=== PATIENT | female | born 1945 | race Caucasian/White ===

== ENCOUNTER 2020-01-04 16:26 | Emergency (ER) | payer MEDICARE, MEDICAID ==
[~2020-01-04] VITALS: Ht 167.6 cm; Wt 80.9 kg
[~2020-01-04 16:26] MED LIST: ATOM80CA PO; LEVO150T8 PO; QUET-1 PO; SERT50TA PO; VALA500T PO; VALS160T2 PO
[2020-01-04 16:27] VITALS: BP 167/112
== END 2020-01-04 17:56 | disposition home or self-care (01) ==
LOC: ER 16:26
DX: J06.9 Acute upper respiratory infection, unspecified (principal); I10 Essential (primary) hypertension; E11.9 Type 2 diabetes mellitus without complications; F31.9 Bipolar disorder, unspecified; F15.90 Other stimulant use, unspecified, uncomplicated; Z60.2 Problems related to living alone; Z79.899 Other long term (current) drug therapy
CPT/HCPCS: 71045; 99283

== ENCOUNTER 2020-04-03 17:24 | Emergency (ER) | payer MEDICARE, MEDICAID ==
[~2020-04-03] VITALS: Ht 167.6 cm; Wt 79.0 kg
[2020-04-03 17:46] VITALS: BP 176/99
== END 2020-04-03 18:30 | disposition home or self-care (01) ==
LOC: ER 17:24
DX: F22 Delusional disorders (principal); I10 Essential (primary) hypertension; E11.9 Type 2 diabetes mellitus without complications; F31.9 Bipolar disorder, unspecified; F15.90 Other stimulant use, unspecified, uncomplicated; Z60.2 Problems related to living alone; Z79.899 Other long term (current) drug therapy; Z00.00 Encounter for general adult medical examination without abnormal findings
CPT/HCPCS: 99281

== ENCOUNTER 2024-10-21 22:31 | Emergency (ER) | payer MEDICARE, MEDICAID ==
[~2024-10-21] VITALS: Ht 167.6 cm; Wt 80.9 kg
[2024-10-21 22:35] VITALS: TEMP 97.1; O2SAT 97
[2024-10-21 23:09] LABS: ALANINE AMINOTRANSFERASE 14 U/L (12-78); ALBUMIN/GLOBULIN RATIO 1.3 (1.1-1.5); ALKALINE PHOSPHATASE 62 IU/L (46-116); ANION GAP 8 (8-16); ASPARTATE AMINO TRANSFERASE 26 U/L (10-37); BILIRUBIN,TOTAL 0.8 MG/DL (0.1-1.0); BLOOD UREA NITROGEN 16 MG/DL (7-18); BUN/CREATININE RATIO 11.9 (10.0-20.0); CALCIUM 9.5 MG/DL (8.5-10.1); CHLORIDE 104 MMOL/L (99-107); CREATININE 1.35 MG/DL (0.40-0.90); GLUCOSE 118 MG/DL (70-104); LIPASE 31 U/L (16-77); SODIUM 140 MMOL/L (135-145); TOTAL CARBON DIOXIDE 28.5 MMOL/L (24-32); TOTAL PROTEIN 7.1 G/DL (6.4-8.2); eCRCL 31 ML/MIN; eGFR 38 ML/MIN
[2024-10-21 23:18] LABS: BASOPHILS % (AUTO) 0.6 % (0-1); EOSINOPHILS # (AUTO) 0.1 X10'3 (0-0.9); EOSINOPHILS % (AUTO) 1.7 % (0-6); HEMATOCRIT 37.3 % (35.0-45.0); HEMOGLOBIN 12.8 g/dl (12.0-16.0); LYMPHOCYTES # (AUTO) 1.4 X10'3 (1.1-4.8); LYMPHOCYTES % (AUTO) 23.5 % (21-51); MEAN CORPUSCULAR HEMOGLOBIN 32.4 PG (27.0-31.0); MEAN CORPUSCULAR HGB CONC 34.3 g/dL (33.0-36.5); MEAN CORPUSCULAR VOLUME 94.5 FL (78-98); MEAN PLATELET VOLUME 8.7 FL (7.4-10.4); MONOCYTES # (AUTO) 0.6 X10'3 (0-0.9); MONOCYTES % (AUTO) 9.4 % (2-12); NEUTROPHILS % (AUTO) 64.8 % (42-75); PLATELET COUNT 187 X10'3 (140-440); RED BLOOD COUNT 3.95 X10'6 (4.20-5.60); RED CELL DISTRIBUTION WIDTH 15.5 % (11.5-14.5); WHITE BLOOD COUNT 6.1 X10'3 (4.5-11.0)
[2024-10-22 05:15] VITALS: BP 150/81; PULSE 64; RESP 18
[2024-10-22] MEDS ORDERED: BISA-78 PO (05:32)
[2024-10-22] MEDS ORDERED: POLY119P2 PO (05:32)
[2024-10-22] MEDS: acetaminophen 325mg tablet PO ONE (06:02)
[2024-10-22] MEDS: bisacodyl 5mg tablet.DR PO ONE (06:02)
== END 2024-10-22 07:15 | disposition home or self-care (01) ==
LOC: ER 22:31
DX: K59.00 Constipation, unspecified (principal); R10.84 Generalized abdominal pain; I10 Essential (primary) hypertension; E11.9 Type 2 diabetes mellitus without complications; F31.9 Bipolar disorder, unspecified; F15.90 Other stimulant use, unspecified, uncomplicated; F03.90 Unspecified dementia, unspecified severity, without behavioral disturbance, psychotic disturbance, mood disturbance, and anxiety
CPT/HCPCS: 36415; 74176; 80053; 83690; 85025; 99285

== ENCOUNTER 2024-10-26 17:04 | Emergency (ER) | payer MEDICAID, MEDICARE ==
[~2024-10-26] VITALS: Ht 167.6 cm; Wt 60.8 kg
[~2024-10-26 17:04] MED LIST changes: +BISA-78 PO; +POLY119P2 PO
[2024-10-26 17:22] VITALS: TEMP 98.2
[2024-10-26] MEDS ORDERED: BISA10SU11 RC (18:15)
[2024-10-26] MEDS: magnesium hydroxide 30ml (MOM) UD suspension PO ONE (18:31)
[2024-10-26] MEDS: ondansetron 4mg rapidly disintigrating tab PO ONE (18:31)
[2024-10-26 19:19] VITALS: BP 171/92; PULSE 66; RESP 16; O2SAT 96
== END 2024-10-26 19:48 | disposition home or self-care (01) ==
LOC: ER 17:05
DX: K59.00 Constipation, unspecified (principal); I10 Essential (primary) hypertension; E11.9 Type 2 diabetes mellitus without complications; F31.9 Bipolar disorder, unspecified; F15.90 Other stimulant use, unspecified, uncomplicated; Z79.899 Other long term (current) drug therapy; Z60.2 Problems related to living alone
CPT/HCPCS: 74018; 99284

== ENCOUNTER 2024-11-12 18:17 | Emergency (ER) | payer MEDICARE, MEDICAID ==
[~2024-11-12] VITALS: Ht 167.6 cm; Wt 64.9 kg
[~2024-11-12 18:17] MED LIST changes: +BISA10SU11 RC
[2024-11-12 20:54] LABS: BASOPHILS % (AUTO) 0.7 % (0-1); EOSINOPHILS # (AUTO) 0.1 X10'3 (0-0.9); EOSINOPHILS % (AUTO) 1.6 % (0-6); HEMATOCRIT 36.5 % (35.0-45.0); HEMOGLOBIN 12.4 g/dl (12.0-16.0); LYMPHOCYTES # (AUTO) 1.2 X10'3 (1.1-4.8); LYMPHOCYTES % (AUTO) 17.8 % (21-51); MEAN CORPUSCULAR HEMOGLOBIN 32.1 PG (27.0-31.0); MEAN CORPUSCULAR HGB CONC 33.8 g/dL (33.0-36.5); MEAN PLATELET VOLUME 8.5 FL (7.4-10.4); MONOCYTES # (AUTO) 0.7 X10'3 (0-0.9); MONOCYTES % (AUTO) 11.3 % (2-12); NEUTROPHILS # (AUTO) 4.5 X10'3 (1.8-7.7); NEUTROPHILS % (AUTO) 68.6 % (42-75); PLATELET COUNT 244 X10'3 (140-440); RED BLOOD COUNT 3.85 X10'6 (4.20-5.60); RED CELL DISTRIBUTION WIDTH 15.1 % (11.5-14.5); WHITE BLOOD COUNT 6.6 X10'3 (4.5-11.0)
[2024-11-12 21:11] LABS: ALANINE AMINOTRANSFERASE 12 U/L (12-78); ALBUMIN 3.4 G/DL (3.4-5.0); ALBUMIN/GLOBULIN RATIO 0.9 (1.1-1.5); ALKALINE PHOSPHATASE 69 IU/L (46-116); ANION GAP 8 (8-16); ASPARTATE AMINO TRANSFERASE 12 U/L (10-37); BILIRUBIN,TOTAL 0.4 MG/DL (0.1-1.0); BLOOD UREA NITROGEN 21 MG/DL (7-18); BUN/CREATININE RATIO 27.3 (10.0-20.0); CALCIUM 9.4 MG/DL (8.5-10.1); CHLORIDE 105 MMOL/L (99-107); CREATININE 0.77 MG/DL (0.40-0.90); GLUCOSE 107 MG/DL (70-104); POTASSIUM 3.3 MMOL/L (3.5-5.1); SODIUM 141 MMOL/L (135-145); TOTAL CARBON DIOXIDE 28.4 MMOL/L (24-32); eCRCL 54 ML/MIN; eGFR 72 ML/MIN
[2024-11-12 21:20] LABS: PRO BRAIN NATRIURETIC PEPTIDE 186 PG/ML (0-450)
[2024-11-12] MEDS ORDERED: potassium chloride 10mEq ER tablet PO SCH (21:55)
[2024-11-12] MEDS: potassium chloride 10mEq ER tablet PO ONE (22:49)
[2024-11-12 22:51] VITALS: TEMP 98.6
[2024-11-12] MEDS: normal saline 1000ML IV soln IVB ONE (23:38)
[2024-11-12] MEDS: lactulose 20gm/30ml cup PO ONE (23:51)
[2024-11-13 00:37] VITALS: BP 144/78; PULSE 78; RESP 16; O2SAT 99
== END 2024-11-13 03:58 | disposition home or self-care (01) ==
LOC: ER 11-13 03:29
DX: Z04.3 Encounter for examination and observation following other accident (principal); K59.00 Constipation, unspecified; R55 Syncope and collapse; E11.9 Type 2 diabetes mellitus without complications; I10 Essential (primary) hypertension; J44.9 Chronic obstructive pulmonary disease, unspecified; F15.90 Other stimulant use, unspecified, uncomplicated; W18.30XA Fall on same level, unspecified, initial encounter; Y93.89 Activity, other specified; Y92.89 Other specified places as the place of occurrence of the external cause; Y99.8 Other external cause status
CPT/HCPCS: 36415; 70450; 71045; 72125; 74018; 80053; 83880; 84484; 85025; 93005; 99285; J7030

== ENCOUNTER 2024-12-30 16:33 | Emergency (ER) | payer MEDICARE, MEDICAID ==
[~2024-12-30] VITALS: Ht 167.6 cm; Wt 77.3 kg
[~2024-12-30 16:33] MED LIST changes: -ATOM80CA PO; -QUET-1 PO; -SERT50TA PO; -VALA500T PO; -VALS160T2 PO
[2024-12-30 19:59] VITALS: BP 140/287; PULSE 87; RESP 16; TEMP 97; O2SAT 100
== END 2024-12-30 20:02 | disposition home or self-care (01) ==
LOC: ER 16:33
DX: S00.83XA Contusion of other part of head, initial encounter (principal); S60.222A Contusion of left hand, initial encounter; J44.9 Chronic obstructive pulmonary disease, unspecified; I10 Essential (primary) hypertension; E11.9 Type 2 diabetes mellitus without complications; F31.9 Bipolar disorder, unspecified; F15.90 Other stimulant use, unspecified, uncomplicated; Z60.2 Problems related to living alone; Z79.899 Other long term (current) drug therapy; W01.0XXA Fall on same level from slipping, tripping and stumbling without subsequent striking against object, initial encounter; Y93.89 Activity, other specified; Y92.89 Other specified places as the place of occurrence of the external cause; Y99.8 Other external cause status
CPT/HCPCS: 70450; 73130; 99284

== ENCOUNTER 2025-02-10 23:49 | Emergency (ER) | payer MEDICARE, MEDICAID ==
[~2025-02-10] VITALS: Ht 167.6 cm; Wt 65.0 kg
[2025-02-11 00:24] LABS: BASOPHILS % (AUTO) 0.6 % (0-1); EOSINOPHILS # (AUTO) 0.2 X10'3 (0-0.9); EOSINOPHILS % (AUTO) 2.6 % (0-6); HEMATOCRIT 38.3 % (35.0-45.0); LYMPHOCYTES % (AUTO) 32.8 % (21-51); MEAN CORPUSCULAR HEMOGLOBIN 30.6 PG (27.0-31.0); MEAN CORPUSCULAR VOLUME 90.1 FL (78-98); MEAN PLATELET VOLUME 8.5 FL (7.4-10.4); MONOCYTES # (AUTO) 0.6 X10'3 (0-0.9); MONOCYTES % (AUTO) 9.8 % (2-12); NEUTROPHILS # (AUTO) 3.2 X10'3 (1.8-7.7); NEUTROPHILS % (AUTO) 54.2 % (42-75); PLATELET COUNT 195 X10'3 (140-440); RED BLOOD COUNT 4.25 X10'6 (4.20-5.60); RED CELL DISTRIBUTION WIDTH 14.4 % (11.5-14.5)
--- NOTE | 2025-02-11 00:31 | RADIOLOGY REPORT ---
CHEST RADIOGRAPH Indication: CP Technique: Single frontal view of the chest was obtained COMPARISON: DI CHEST,SINGLE VIEW on DOS: 11/25/24, DI CHEST,SINGLE VIEW on DOS: 11/12/24, CHEST,SINGLE VIEW on DOS: 01/04/20 FINDINGS: Lines and Tubes: None Lungs: Clear Pleura: No effusion. No pneumothorax. Cardiomediastinal contours: Unremarkable Bones: Unremarkable IMPRESSION: 1. No acute disease.
[2025-02-11 00:43] LABS: ALANINE AMINOTRANSFERASE 16 U/L (12-78); ALBUMIN 3.5 G/DL (3.4-5.0); ALBUMIN/GLOBULIN RATIO 1.2 (1.1-1.5); ALKALINE PHOSPHATASE 70 IU/L (46-116); ANION GAP 7 (8-16); ASPARTATE AMINO TRANSFERASE 12 U/L (10-37); BILIRUBIN,TOTAL 0.4 MG/DL (0.1-1.0); BLOOD UREA NITROGEN 16 MG/DL (7-18); BUN/CREATININE RATIO 20.8 (10.0-20.0); CALCIUM 9.6 MG/DL (8.5-10.1); CHLORIDE 107 MMOL/L (99-107); CREATININE 0.77 MG/DL (0.40-0.90); GLUCOSE 95 MG/DL (70-104); POTASSIUM 3.7 MMOL/L (3.5-5.1); PRO BRAIN NATRIURETIC PEPTIDE 287 PG/ML (0-450); SODIUM 143 MMOL/L (135-145); TOTAL CARBON DIOXIDE 29.4 MMOL/L (24-32); TOTAL PROTEIN 6.5 G/DL (6.4-8.2); eCRCL 53 ML/MIN; eGFR 72 ML/MIN
--- NOTE | 2025-02-11 02:42 | Physician Documentation ---
History of Present Illness ~ Chief Complaint: Extremity Swelling Stated Complaint: ANKLE SWELLING Time Seen by MD: 02:35 OK to notify your PCP?: Yes Primary Medical Doctor: [facility] Source: patient, RN/, RN notes reviewed, old records Mode of Arrival: POV, Ambulatory Exam Limitations: no limitations HPI 80 year old female presents to the emergency department for complaints of leg swelling that has been present for two weeks. She states that her legs have been swelling and she has been experiencing foot pain. Additionally she states that she has been coughing up yellow sputum. Patient denies any shortness of breath. Patient has not been taking blood pressure medication because machine reads her pressures as being low. Of note sarah states that she fell recently and has been having pain in her ri ght hand and states that she has been having pain between her shoulder blades. Tetanus witin 5 years: Yes Medication Reconciliation Allergies: Coded Allergies: No Known Allergies (Unverified , 02/10/25) Scheduled Azithromycin (Zithromax), 1 TAB PO UD Bisacodyl (Dulcolax), 4 TAB PO ONCE Bisacodyl (Bisacodyl), 1 SUPP RC Q72H Furosemide* (Lasix*), 0.5 TAB PO DAILY Levothyroxine Sodium (Levothyroxine Sodium), 1 TABLET PO DAILY, (Reported) Polyethylene Glycol 3350 (Miralax), 17 GM PO DAILY Past Medical History Past Medical History: Hypertension, COPD, Diabetes, *PSYCH*, Bipolar Past Surgical History: no surgical history Alcohol Use: None Drug Use: methamphetamine Lives with: Alone Lives In: Home Review of Systems All Other Systems at this time: Reviewed and Negative ROS As stated above in the HPI, otherwise all systems are reviewed and negative. Physical Exam Vital Signs: RN Vital Signs have been reviewed: Yes, Temperature: 98.1, Source: Oral, Heart Rate: 86, Respiratory Rate: 14, BP: 159/82, Pulse Oximetry: 98, Weight: 65.000 Pulse Oximetry Reflects: adequate oxygenation Physical Exam General: The patient is well developed, well nourished, nontoxic appearing and is in no acute distress. Skin: [place], warm and dry with no rashes. HEENT: Head was normocephalic and atraumatic. Eyes - pupils equal, round, reactive to light and accommodation. Extraocular movements were intact. Conjunctivae were nonicteric. Ears - bilateral tympanic membranes were normal. The mouth and oropharynx were clear with moist mucous membranes. There were no pharyngeal exudates or erythema. Neck: Supple and nontender. There was no jugular venous distention, lymp hadenopathy, thyromegaly or masses. Chest: Clear to auscultation bilaterally without wheezes, rales or rhonchi. No accessory muscle use. No dullness to percussion. Heart: Rate regular and rhythmic. S1, S2. No murmurs. Palpation of the chest wall was normal. No rubs or thrills. Abdomen: Soft, nontender and nondistended. Positive bowel sounds. No guarding or rebound. No hepatosplenomegaly or palpable masses. Extremities:Trace edema lower extremities. The patient moves all extremities. Pulses were equal and symmetric. Neurologic: Cranial nerves II-XII were intact. Sensation was intact to light touch throughout. Motor strength was 5/5 in all four extremities. Deep tendon reflexes were intact in both upper and lower extremities. Psychologic: The patient was oriented to person, place and time. The patient demonstrated appropriate judgement and insight. Progress Results/Orders Reviewed/noted all lab results: Yes Results/Orders Orders - SHON MANDEL MD Monitor (02/10/25 23:56) Saline Lock (02/10/25 23:56) Oxygen (02/10/25 23:56) Electrocardiogram (02/10/25 23:56) Chest,Single View (02/11/25 00:22) Cult Urine + [place] (02/11/25 03:12) Completed Orders - SHON MANDEL MD Cbc/Diff (02/10/25 23:56) PBNP (02/10/25 23:56) CMP (02/10/25 23:56) Hs Troponin I W Calculations (02/10/25 23:56) Hs Troponin I W Calculations (02/11/25 01:56) Hs Troponin I W Calculations (02/11/25 02:56) Chest,Single View (02/11/25 00:22) Ethanol (02/11/25 02:39) Drug Screen, Urine (02/11/25 02:39) C-Reactive Protein (02/11/25 02:41) ESR (02/11/25 02:41) TSH (02/11/25 02:59) Ua W/Microscopic, Cult If Ind (02/11/25 02:41) Furosemide Tablet (Lasix Tablet) (02/11/25 03:10) Amlodipine Tablet (Norvasc Tablet) (02/11/25 03:10) Dexamethasone Tablet (Decadron Tablet) (02/11/25 03:10) Amlodipine Tablet (Norvasc Tablet) (02/11/25 03:15) Fosfomycin Tromethamine Packet (Monurol (02/11/25 03:35) Medications Received in ER Medications (Trade) Dose Ordered Sig/Talia Route PRN Reason Start Time Stop Time Status Last Admin Dose Admin (Lasix tablet) 20 mg ONCE ONCE PO 02/11/25 03:10 02/11/25 03:11 DC 02/11/25 03:16 20 MG (Norvasc tablet) 2.5 mg ONCE ONCE PO 02/11/25 03:10 02/11/25 03:11 DC 02/11/25 03:17 2.5 MG (Decadron tablet) 12 mg ONCE ONCE PO 02/11/25 03:10 02/11/25 03:11 DC 02/11/25 03:17 12 MG (Norvasc tablet) 2.5 mg ONCE ONCE PO 02/11/25 03:15 02/11/25 03:16 DC 02/11/25 03:17 2.5 MG (Monurol 3gm packet) 3 gm ONCE ONCE PO 02/11/25 03:35 02/11/25 03:36 DC 02/11/25 03:41 3 GM Vital Signs 02/10/25 02/11/25 02/11/25 02/11/25 23:51 02:27 03:01 03:17 Temp 98.1 Pulse 86 71 72 Resp 18 14 16 B/P (MAP) 159/82 164/101 (122) Pulse Ox 98 99 O2 Flow Rate 0 02/11/25 02/11/25 03:17 03:46 Temp 97.5 Pulse 72 70 Resp 16 B/P (MAP) 138/67 Pulse Ox 99 Laboratory Tests Test 02/10/25 00:05 02/11/25 00:05 02/11/25 02:08 02/11/25 02:41 CBC Comment Chemistry Comments White Blood Count 6.0 Red Blood Count 4.25 Hemoglobin 13.0 Hematocrit 38.3 Mean Corpuscular Volume 90.1 Mean Corpuscular Hemoglobin 30.6 Mean Corpuscular Hemoglobin Concent 34.0 Red Cell Distribution Width 14.4 Platelet Count 195 Mean Platelet Volume 8.5 Neutrophils (%) (Auto) 54.2 Lymphocytes (%) (Auto) 32.8 Monocytes (%) (Auto) 9.8 Eosinophils (%) (Auto) 2.6 Basophils (%) (Auto) 0.6 Neutrophils # (Auto) 3.2 Lymphocytes # (Auto) 2.0 Monocytes # (Auto) 0.6 Eosinophils # (Auto) 0.2 Basophils # (Auto) 0.0 Erythrocyte Sedimentation Rate 6 Sodium Level 143 Potassium Level 3.7 Chloride Level 107 Carbon Dioxide Level 29.4 Anion Gap 7 L Blood Urea Nitrogen 16 Creatinine 0.77 Estimated GFR/1.73 m2 72 BUN/Creatinine Ratio 20.8 H Glucose Level 95 Calcium Level 9.6 Total Bilirubin 0.4 Aspartate Amino Transf (AST/SGOT) 12 Alanine Aminotransferase (ALT/SGPT) 16 Alkaline Phosphatase 70 Troponin I High Sensitivity 13 11 Pro-B-Type Natriuretic Peptide 287 Total Protein 6.5 Albumin 3.5 Globulin 3.0 Albumin/Globulin Ratio 1.2 Troponin I High Sens Percent Delta 15 Troponin I Hi Sens Absolute Change -2 Urine Specimen Description Non-specified Urine Color Yellow Urine Clarity Cloudy Urine pH 5.5 Urine Specific [place] 1.025 Urine Protein Negative Urine Glucose (UA) Negative Urine Ketones Negative Urine Occult Blood Trace-intact Urine Nitrite Positive H Urine Bilirubin Negative Urine Urobilinogen 0.2 Urine Leukocyte Esterase Moderate H Urine RBC 0-2 Urine WBC Tntc H Urine Squamous Epithelial Cells Few Urine Bacteria 4+ Urine Mucus Few Urine Culture Indicated Indicated Volume Urine Centrifuged 10 ml Urine Comment Urine Opiates Screen Negative Urine Methadone Screen Negative Urine Fentanyl Screen Negative Urine Barbiturates Screen Negative Urine Phencyclidine Screen Negative Urine Amphetamines Screen Negative Urine Benzodiazepines Screen Negative Urine Cocaine Screen Negative Urine Cannabinoids Screen Positive Drug Screen Comment Test 02/11/25 03:01 Troponin I High Sensitivity 12 Troponin I High Sens Percent Delta 9 Troponin I Hi Sens Absolute Change 1 C-Reactive Protein 0.19 Thyroid Stimulating Hormone (TSH) 0.65 Ethyl Alcohol Level < 10 Microbiology Date/Time Source Procedure Growth Status 02/11/25 03:12 Urine Nonspecified Urine Culture - Preliminary Culture received. Resulted Re-Evaluation Re-Evaluation : Re-Evaluation: Improved Progress Patient was seen and examined. Patient was given reassurance. Patient was found to have some elevated blood pressure which was treated. Afterwards laboratory work was obtained patient was found to have a UTI bit dehydrated with a specific gravity of 1.025 positive nitrates as well as leukocyte esterase and TNTC WBCs. Patient received fosfomycin prescription but because TNTC will prior need additional antibiotics. Patient was complaining of green sputum and cough as well and was given Zithromax prescription. Patient's troponins were negative x3 chemistry was within normal limits including LFTs as well as TSH CBC sed rate all within normal limits. Patient did have some significant edema of the lower extremity thought to be secondary to untreated hypertension. Patient did receive a dose of Norvasc but low-dose 2.5 mg because there was a report that the patient became hypotensive and that is why she has noncompliance. However the patient ultimately appeared well received Lasix for diuresis also a prescription for the same and will need to follow up with the primary care physician for blood pressure management and care. 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 Pulse oximetry monitor interpretation shows normal oxygenation 99% room air, normal, my interpretation. EKG/XRAY/CT/US/VASC/MRI EKG : Additional Comment [id number]: DORIAN Mandel interpreted EKG to show normal sinus rhythm at a rate of 82 bpm normal sinus rhythm. Patient has normal axis and intervals with good r wave progression. Qtc of 427. Chest X-Ray : Additional Comments CHEST RADIOGRAPH Indication: CP Technique: Single frontal view of the chest was obtained COMPARISON: DI CHEST,SINGLE VIEW on DOS: 11/25/24, DI CHEST,SINGLE VIEW on DOS: 11/12/24, CHEST,SINGLE VIEW on DOS: 01/04/20 FINDINGS: Lines and Tubes: None Lungs: Clear Pleura: No effusion. No pneumothorax. Cardiomediastinal contours: Unremarkable Bones: Unremarkable IMPRESSION: 1. No acute disease. Electronically Signed by:JORGE ALBERTO BEEBE MD Date & Time: 02/11/25 0030 Medical Decision Making Additional info obtained from: old records Foot Diff Dx:Considerations: Include: Septic, Other Departure Time of Disposition: 03:13 Disposition: 01 HOME / SELF CARE / HOMELESS Impression: Primary Impression: Hypertension Qualified Codes: I10 - Essential (primary) hypertension Additional Impressions: Dependent edema Cough Qualified Codes: R05.1 - Acute cough UTI (urinary tract infection) Qualified Codes: N30.00 - Acute cystitis without hematuria Condition: Stable Discharge Instructions: Edema, Bzef-ha-Veag Additional Instructions: Patient is to take Zithromax for coughing. 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 Take 2.5mg Norvasc at night. Referrals: NO PRIMARY CARE PROVIDER (PCP) Prescriptions Furosemide* (Lasix*) 20 Mg Tablet 0.5 TAB PO DAILY for 30 Days, #30 TAB Prov: SHON MANDEL MD 02/11/25 Azithromycin (Zithromax) 250 Mg Tablet 1 TAB PO UD for 5 Days, #6 TAB 2 the first day followed by 1 for days 2-5 Prov: SHON MANDEL MD 02/11/25 Education Educated: Patient, Family Educated regarding: diagnosis, treatment, prognosis, need for follow up Signature Scribe Signature: Scribed for Shon Mandel MD by Robert Kumar . 02/11/25 03:17 Attestation: The note accurately reflects work and decisions made by me.Shon Mandel MD 02/11/25 02:42 SHON MANDEL MD Feb 11, 2025 02:42 ROBERT LUCERO Feb 11, 2025 03:15
[2025-02-11 02:59] LABS: BILIRUBIN,URINE NEGATIVE (Neg); CLARITY,URINE CLOUDY (Clear); COLOR,URINE YELLOW (Yellow); GLUCOSE, URINE NEGATIVE (Neg); KETONES,URINE NEGATIVE (Neg); LEUKOCYTE ESTERASE ,URINE MODERATE (Neg); NITRITES, URINE POSITIVE (Neg); OCCULT BLOOD,URINE TRACE-INTACT (Neg); PH,URINE 5.5 (4.8-8.0); PROTEIN,URINE NEGATIVE (Neg); UA COLLECTION TYPE NON-SPECIFIED; UROBILINOGEN,URINE 0.2 E.U/dL (0.2-1.0)
[2025-02-11 03:06] LABS: URINE AMPHETAMINE SCREEN NEGATIVE (Neg); URINE BARBITUATE SCREEN NEGATIVE (Neg); URINE BENZODIAZEPINES SCREEN NEGATIVE (Neg); URINE CANNABINOID SCREEN POSITIVE (Neg); URINE COCAINE SCREEN NEGATIVE (Neg); URINE METHADONE SCREEN NEGATIVE (Neg); URINE OPIATE SCREEN NEGATIVE (Neg); URINE PHENCYCLIDINE SCREEN NEGATIVE (Neg)
[2025-02-11 03:12] LABS: BACTERIA,URINE 4+ /HPF (Neg); MUCUS STRANDS FEW /LPF (Neg); RBC,URINE 0-2 /HPF (0-2); SQUAMOUS EPITHELIAL CELL,UR FEW /LPF (FEW); WBC,URINE TNTC /HPF (0-4)
[2025-02-11] MEDS ORDERED: AZIT250T PO (03:15)
[2025-02-11] MEDS ORDERED: FURO-150 PO (03:16)
[2025-02-11] MEDS: furosemide 20MG tablet PO ONE (03:16)
[2025-02-11] MEDS: amLODIPine 5mg tablet PO ONE (03:17)
[2025-02-11] MEDS: amLODIPine 2.5mg tablet PO ONE (03:17)
[2025-02-11] MEDS: dexamethasone 4mg tablet PO ONE (03:17)
[2025-02-11 03:33] LABS: C-REACTIVE PROTEIN 0.19 MG/DL (0.0-0.5); ETHANOL < 10 MG/DL (<10); THYROID STIMULATING HORMONE 0.65 ulU/ml (0.34-4.50)
[2025-02-11] MEDS: FOSFOMYCIN TROMETHAMINE 3 GM PACKET PO ONE (03:41)
[2025-02-11 03:46] VITALS: BP 138/67; PULSE 70; RESP 16; TEMP 97.5; O2SAT 99
--- NOTE | 2025-02-11 06:57 | ELECTROCARDIOGRAPH REPORT ---
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 Raoul Butler Measurements Intervals [place] Rate: 82 P: 74 VA: 146 QRS: 47 QRSD: 92 T: 46 QT: 365 QTc: 427 Interpretive Statements Sinus rhythm Electronically Signed On 02-11-2025 18:19:[address] Raoul Butler Please click the below link to view image of tracing.
== END 2025-02-11 03:48 | disposition home or self-care (01) ==
LOC: ER 23:50
DX: R60.0 Localized edema (principal); R05.9 Cough, unspecified; I10 Essential (primary) hypertension; N39.0 Urinary tract infection, site not specified; E11.9 Type 2 diabetes mellitus without complications; J44.9 Chronic obstructive pulmonary disease, unspecified; F15.90 Other stimulant use, unspecified, uncomplicated
CPT/HCPCS: 36415; 71045; 80053; 80305; 81001; 83880; 84443; 84484; 85025; 85651; 86140; 87088; 93005; 99285; G0480; 80320; 87077; 87186